=== PATIENT | female | born 1950 | race Caucasian/White ===

== ENCOUNTER → 2023-11-08 | Outpatient (CLI) | payer MEDICARE ==
--- NOTE | 2023-11-08 11:07 | XR ---
EXAMINATION TYPE: XR chest 2V DATE OF EXAM: 11/08/2023 COMPARISON: NONE TECHNIQUE: PA and lateral views submitted. HISTORY: Cyst on the left lung FINDINGS: There is a 1 cm nodule right lower lobe. 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 Underlying COPD. No acute consolidation. Degenerative changes of the spine. Heart size normal and no overt tian lure. Arthropathy of the shoulders. IMPRESSION: 1. 1 cm right lower lobe pulmonary nodule. Recommend correlation with CT scan..
== END | disposition home or self-care (01) ==
LOC: RADXRMAIN 10:38
PROVIDERS: ATTEND Family Medicine
DX: R91.1 Solitary pulmonary nodule (principal); R61 Generalized hyperhidrosis; J98.4 Other disorders of lung
CPT/HCPCS: 71046

== ENCOUNTER 2024-02-06 05:51 | Day surgery (SDC) | payer MEDICARE, OTHER ==
[2024-02-04 15:58] VITALS: BMI 28.3
[2024-02-06] MEDS ORDERED: NITROGLYCERIN SL TABS 0.4 MG TAB SUBLINGUAL PRN (05:55)
[2024-02-06] MEDS ORDERED: ALPRAZolam 0.5 MG TAB PO PRN (05:55)
[2024-02-06] MEDS ORDERED: HEPARIN SODIUM,PORCINE (1 ML) 2,500 UNIT in SODIUM CHLORIDE 0.9% 250 ML IRRIGATION PRN (05:55)
[2024-02-06] MEDS ORDERED: HEPARIN SODIUM,PORCINE 10,000 UNIT in SODIUM CHLORIDE 0.9% 1,000 ML IRRIGATION PRN (05:55)
[2024-02-06] MEDS ORDERED: ALPRAZolam 0.25 MG TAB PO PRN (05:55)
[2024-02-06] MEDS: SODIUM CHLORIDE 0.9% 1,000 ML in EMPTY BAG 1 BAG IV SCH (06:12)
[2024-02-06] MEDS: ASPIRIN 325 MG TAB PO ONE (06:13)
[2024-02-06] MEDS: IV FLUID CONTINUATION 1,000 ML IV ONE (06:14)
[2024-02-06] MEDS: ATORVASTATIN 80 MG TAB PO ONE (06:14)
[2024-02-06 06:23] VITALS: RESP 16; TEMP 97.8
[2024-02-06 06:25] LABS: Basophils # (A) 0.1 k/uL (0-0.2); Basophils % (A) 1 %; Eosinophils # (A) 0.2 k/uL (0-0.7); Eosinophils % (A) 3 %; HCT 44.2 % (34.0-46.0); HGB 15.1 gm/dL (11.4-16.0); Lymphocytes # (A) 1.6 k/uL (1.0-4.8); Lymphocytes % (A) 21 %; MCH 31.7 pg (25.0-35.0); MCHC 34.1 g/dL (31.0-37.0); MCV 92.9 fL (80.0-100.0); Monocytes # (A) 0.6 k/uL (0-1.0); Monocytes % (A) 7 %; Neutrophils # (A) 5.1 k/uL (1.3-7.7); Neutrophils % (A) 67 %; Platelet Count 290 k/uL (150-450); RBC 4.76 m/uL (3.80-5.40); WBC 7.6 k/uL (3.8-10.6)
[2024-02-06 06:36] LABS: African American GFR (CKD) 87 (>60 ml/min/1.73 sqM); Anion Gap 9 mmol/L; Blood Urea Nitrogen 23 mg/dL (7-17); Calcium 9.6 mg/dL (8.4-10.2); Carbon Dioxide 24 mmol/L (22-30); Chloride 107 mmol/L (98-107); Glucose 97 mg/dL (74-99); Non-African American GFR(CKD) 75 (>60 ml/min/1.73 sqM); Potassium 3.5 mmol/L (3.5-5.1); Sodium 140 mmol/L (137-145)
[2024-02-06] MEDS ORDERED: VERAPAMIL 2.5 MG/ML 2 ML AMP ONE (07:19)
[2024-02-06] MEDS ORDERED: LIDOCAINE 1% INJ 10MG/ML (20 ML MDV) ONE (07:20)
[2024-02-06] MEDS ORDERED: fentaNYL (PF) 50 MCG/ML 2 ML AMP ONE (07:25)
[2024-02-06] MEDS ORDERED: HEPARIN SODIUM 1,000 UN/ML (10ML VL) ONE (07:25)
[2024-02-06] MEDS: LIDOCAINE 1% INJ 10MG/ML (20 ML MDV) SQ ONE (07:39)
[2024-02-06] MEDS: fentaNYL (PF) 50 MCG/1 ML VIAL IVP ONE (07:39)
[2024-02-06] MEDS: VERAPAMIL 2.5 MG/ML 4 ML VIAL INTRAARTER ONE (07:40)
[2024-02-06] MEDS: MIDAZOLAM 2 MG/2 ML VIAL IVP ONE (07:48)
[2024-02-06] MEDS: HEPARIN SODIUM 1,000 UN/ML (10ML VL) IVP ONE ×2 (07:48→08:06)
[2024-02-06] MEDS: NITROGLYCERIN 1000MCG/10ML SYRINGE INTRACORON ONE (08:15)
[2024-02-06] MEDS: IOPAMIDOL-370 100ML BTL INJ ONE (08:19)
[2024-02-06] MEDS: HEPARIN SODIUM,PORCINE (1 ML) 2,500 UNIT in SODIUM CHLORIDE 0.9% 250 ML IRRIGATION ONE (08:20)
[2024-02-06] MEDS: HEPARIN SODIUM,PORCINE 10,000 UNIT in SODIUM CHLORIDE 0.9% 1,000 ML IRRIGATION ONE (08:20)
[2024-02-06] MEDS ORDERED: RX INFO: IV CONTRAST WAS GIVEN 1 EACH MISC MISCELLANE PRN (08:31)
--- NOTE | 2024-02-06 08:39 | P.CARDCATH ---
Date of Procedure: 02/06/24 Description of Procedure: Cardiac Catheterization: The patient is a 74-year-old female with a history of hypertension, hyperlipidemia who has been complaining of progressive dyspnea and had an abnormal MPI with apical ischemia. Recommendations were made regarding cardiac catheterization, the risks and the complications were discussed with the patient who is in full understanding and agreement. Procedure Description: Patient was brought to [facility] in fasting semi-sedated state after receiving Fentanyl and Benadryl achieiving moderate conscious sedated state. Using Xylocaine Anesthesia and modified Seldinger technique, a 6-Israeli sheath was introduced in the right radial artery . Subsequently, selective coronary angiography was performed using a 5-Israeli 3.5 right and 4.0 left bend Rosa catheter. Multiple views of the coronary artery including hemiaxial views were obtained. The 5 Israeli pigtail catheter was used to cross the aortic valve and LVEDP was calculated. IFR: After removing the catheters a 6 Israeli CLS 3.5 guiding catheter was introduced and after cannulating the left main a Doppler flow wire was introduced in the left circumflex and subsequently in the LAD, IFR was measured at 95 in the left circumflex and 96 in the LAD. Following that, catheter and sheath were removed. Hemostasis was obtained with deployment of vascular band . There was no immediate complication. Patient was returned to room in stable condition. Of note, the patient received a total of 5000 units of intravenous heparin as well as intra-arterial verapamil. Findings: Fluoroscopy: Calcifications of the LAD was noted Left main: This is a large size vessel, bifurcating into LAD and left circumflex , left main has no obstructive disease LAD: This is a large size vessel, giving rise to a moderately sized diagonal branch in the midsegment. The proximal LAD is calcified and has intimal disease with a area of stenosis in the range of 50%, the mid and distal vessel have no high-grade stenosis Left circumflex: This is a nondominant vessel, large in caliber, giving rise to 2 moderate obtuse marginal branch. The left circumflex and the mid and distal segment has a area of stenosis up to 50% RCA: This is a dominant vessel bifurcating distally to PDA and PLV. The mid segment has diffuse intimal disease with a area of stenosis of 30 to 40% Left Ventriculogram: Not performed Hemodynamics: There was no gradient across the aortic valve, LVEDP was 12-16 mmHg Conclusion: 1. Calcified LAD 2. Mild disease in the RCA 3. Moderate disease in the LAD and left circumflex with nonhemodynamically significant IFR measurement 4. Right dominance Recommendations: Based on the results of the IFR I would recommend to continue medical therapy with the aggressive coronary risks modifications initiated. The findings and the recommendations were discussed with the patient and the family and they were in full understanding and agreement. Duration of sedation is 45 minutes.
[2024-02-06] MEDS ORDERED: SODIUM CHLORIDE 0.9% 1,000 ML IV SCH (08:45)
[2024-02-06] MEDS ORDERED: FERROUS SULFATE 325 MG TAB PO SCH (09:00)
[2024-02-06] MEDS ORDERED: DULoxetine HCL 60 MG CAPSULE.DR PO SCH (09:00)
[2024-02-06] MEDS ORDERED: ATORVASTATIN 20 MG TAB PO SCH (09:00)
[2024-02-06] MEDS ORDERED: oxyBUTYnin chloride 5 MG TAB PO SCH (09:00)
[2024-02-06] MEDS ORDERED: ISOSORBIDE MONONITRATE ER 30 MG TAB.ER.24H PO SCH (09:00)
[2024-02-06] MEDS: ACETAMINOPHEN TAB 500 MG TAB PO PRN (11:12)
[2024-02-06 14:46] VITALS: BP 120/57; PULSE 70
[2024-02-06] MEDS ORDERED: NON FORMULARY DRUG (Omeprazole 20 MG Capsule.Dr) PO SCH (17:30)
[2024-02-06] MEDS ORDERED: NON FORMULARY DRUG (Magnesium Citrate [Magnesium Citrate] 125 MG Capsule) PO SCH (21:00)
== END 2024-02-06 11:40 | disposition home or self-care (01) ==
LOC: CATHCVL 05:51
PROVIDERS: ATTEND Internal Medicine Interventional Cardiology
DX: I25.10 Atherosclerotic heart disease of native coronary artery without angina pectoris (principal); I25.84 Coronary atherosclerosis due to calcified coronary lesion; I10 Essential (primary) hypertension; E78.5 Hyperlipidemia, unspecified
CPT/HCPCS: 93458; 93571; 80048; 85025; C1769 ×4; C1887; C1894; J2250; J1644 ×3; J2001; Q9967; J3010; J2305